=== PATIENT | female | born 1990 | race Caucasian/White ===

== ENCOUNTER 2021-06-30 11:25 | Emergency (ER) | payer SELFPAY ==
[~2021-06-30] VITALS: Ht 160 cm; Wt 86.2 kg
[2021-06-30 11:35] VITALS: BP 129/93
[2021-06-30] MEDS ORDERED: FLUORESCEIN OPTH STRIP 1 MG OP ONE (11:35)
[2021-06-30] MEDS ORDERED: TETRACAINE 1% 2 ML AMP INJ ONE (11:35)
--- NOTE | 2021-06-30 11:41 | NUR ---
[place]: R20/100, L20/200, BOTH EYES 20/70
--- NOTE | 2021-06-30 11:44 | NUR ---
PT AMBULATED TO BED 9
[2021-06-30] MEDS ORDERED: TOMOMETER 1 DEV DEV MC ONE (11:53)
--- NOTE | 2021-06-30 11:58 | NUR ---
[place] AT PATIENT BEDSIDE
--- NOTE | 2021-06-30 12:03 | NUR ---
31Y FEMALE BIB SELF DUE TO L EYE PAIN. PER PATIENT SHE WAS DX WITH UVEITIS AND WAS GIVEN EYE DROPS. PER PATIENT SHE RAN OUT OF HER DROPS WHEN THE PAIN STARTED TO EXPERINCE DISCOMFORT. PT STATED SHE CAN STILL SEE, BUT IT IS SLIGHTLY BLURRY IN HER L EYE PMH: ANIL WALKER
[2021-06-30] MEDS ORDERED: CYC1OS LEFT EYE (12:29)
[2021-06-30] MEDS ORDERED: PREOS OP (12:29)
--- NOTE | 2021-06-30 12:46 | NUR ---
Patient discharged with v/s stable. Written and verbal after care instructions given and explained. Patient alert, oriented and verbalized understanding of instructions. Ambulatory with steady gait. All questions addressed prior to discharge. ID band removed. Patient advised to follow up with PMD. Rx of CYCLOPENTOLATE HYDROCHLORIDE, PRDNISOLONE ACETATE given. Opportunity to ask questions provided and answered.
== END 2021-06-30 12:45 | disposition home or self-care (01) ==
LOC: MED 11:25
DX: H57.12 Ocular pain, left eye (principal); Z79.899 Other long term (current) drug therapy
CPT/HCPCS: 99283; J3490